=== PATIENT | female | born 1955 | race Caucasian/White ===

== ENCOUNTER 2017-11-24 11:20 | Emergency (ER) | payer OTHER ==
[2017-11-24 11:23] VITALS: BP 108/61; PULSE 76; RESP 14; TEMP 98; O2SAT 98
[2017-11-24] MEDS ORDERED: VENL37.5 PO (11:36)
[2017-11-24] MEDS ORDERED: ATEN25TA PO (11:36)
[2017-11-24] MEDS ORDERED: DOXY100C PO (11:40)
--- NOTE | 2017-11-24 11:41 | PD ---
HPI Chief Complaint: ENT Complaint Time Seen by Provider: 11:28 Travel History International Travel<30 days: No Contact w/Intl Traveler<30days: No Traveled to known affect area: No History of Present Illness HPI 62-year-old female here with left frontal and maxillary sinus pain and pressure 10 days. Patient reports history of frequent sinus infections.10 days ago she developed a mild URI with nasal congestion and sore throat. The pain in the left sinus has steadily increased for 10 days. She is reporting mucopurulent nasal discharge. No fevers or chills. No headache. Since then severity is moderate. No aggravating or alleviating factors. PFSH Past Medical History Medical History: Denies Significant Hx Social History Tobacco Use: No Allergies-Medications (Allergen,Severity, Reaction): Coded Allergies: Penicillins (Verified Allergy, Severe, Anaphylaxis, 11/24/17) Reported Meds & Prescriptions Reported Meds & Active Scripts Active Reported Effexor (Venlafaxine HCl) 37.5 Mg Tab 37.5 Mg PO Q12HR Atenolol 25 Mg Tab 25 Mg PO DAILY Review of Systems Except as stated in HPI: all other systems reviewed are Neg General / Constitutional: No: Fever HENT: Positive: Congestion, Other (sinus pain) Physical Exam Narrative GENERAL: Alert and well-appearing 60-year-old female. SKIN: Warm and dry. HEAD: Normocephalic. EYES:No injection or drainage. Ears/nose/throat: +TTP left ethmoid/maxillary sinus. No pharyngeal erythema. No tonsillar hypertrophy or exudate. Uvula is midline. Nares pain. NECK: Supple, trachea midline. No trismus CARDIOVASCULAR: Regular rate and rhythm RESPIRATORY: Breath sounds equal bilaterally. No accessory muscle use. Data Data Last Documented VS Vital Signs Date Time Temp Pulse Resp B/P (MAP) Pulse Ox O2 Delivery O2 Flow Rate FiO2 11/24/17 11:23 98.0 76 14 108/61 (77) 98 MDM Medical Decision Making Medical Screen Exam Complete: Yes Emergency Medical Condition: Yes Differential Diagnosis Sinusitis, URI, allergic rhinitis Narrative Course 62-year-old female here with acute sinusitis. She is nontoxic appearing. She was prescribed doxycycline and instructed to use Flonase. Diagnosis Primary Impression: Sinusitis Qualified Codes: J01.00 - Acute maxillary sinusitis, unspecified Referrals: Primary Care Physician Additional Instructions: Antibiotics as directed. Use Flonase as directed. Scripts Doxycycline Hyclate (Doxycycline Hyclate) 100 Mg Cap 100 MG PO BID for Infection for 10 Days, #20 CAP 0 Refills Prov: Roopa Mari 11/24/17 Disposition: 01 DISCHARGE HOME Condition: Stable Roopa Mari Nov 24, 2017 11:41
== END 2017-11-24 11:53 | disposition home or self-care (01) ==
LOC: NEPK 11:20
DX: J01.00 Acute maxillary sinusitis, unspecified (principal); Z88.0 Allergy status to penicillin; Z79.899 Other long term (current) drug therapy
CPT/HCPCS: 99283